=== PATIENT | male | born 1995 | race African-American/Black ===

== ENCOUNTER 2021-12-04 16:59 | Emergency (ER) | payer OTHER, SELFPAY ==
[2021-12-04] MEDS ORDERED: Acetaminophen 500 MG TAB ONE (17:47)
[2021-12-04] MEDS ORDERED: Ibuprofen 200 MG TAB ONE (17:47)
[2021-12-05 15:30] LABS: SARS-CoV-2 PCR by NAA DETECTED (NotDetected)
== END 2021-12-04 17:52 | disposition home or self-care (01) ==
LOC: CSHERS 16:59
DX: U07.1 COVID-19 (principal)
CPT/HCPCS: 99283; U0003; U0005